=== PATIENT | female | born 1940 | race Caucasian/White ===

== ENCOUNTER 2017-12-20 14:32 | Outpatient (CLI) | payer MEDICARE, OTHER | END 2017-12-20 14:33 | LOC: NEPHRO 14:32 | PROVIDERS: ATTEND Internal Medicine Nephrology | DX: I10 Essential (primary) hypertension (principal); E87.6 Hypokalemia; I35.1 Nonrheumatic aortic (valve) insufficiency | CPT/HCPCS: G0463 ==